=== PATIENT | male | born 1995 | race Caucasian/White ===

== ENCOUNTER 2021-11-24 23:39 | Emergency (ER) | payer SELFPAY ==
[2021-11-25 00:08] LABS: BASOPHIL 0.3 % (0-2); EOSINOPHIL 0.1 % (0-5); HCT 48.6 % (42.0-52.0); HGB 16.9 g/dl (13.2-18.0); LYMPHOCYTE 6.2 % (15-48); MCH 30.3 pg (25.0-31.0); MCHC 34.8 g/dL (32.0-36.0); MCV 87.1 fL (78.0-100.0); MONOCYTE 3.9 % (0-12); MPV 9.5 fL (6.0-9.5); NEUTROPHIL 89.1 % (41-80); NRBC 0; PLT 213 K/uL (150-400); RBC 5.58 M/uL (4.70-6.00); RDW 11.4 % (11.5-14.0); WBC 13.1 K/uL (4.0-10.5)
[2021-11-25 00:25] LABS: BILIRUBIN - TOTAL 1.2 mg/dL (0.2-1.0); GLOBULIN (CALCULATION) 3.4 g/dL; POTASSIUM 4.2 mmol/L (3.5-5.1); TOTAL PROTEIN 8.4 g/dL (6.4-8.2)
[2021-11-25 01:26] LABS: BILIRUBIN 1+ mg/dL (NEGATIVE); BLOOD 3+ Ery/uL (NEGATIVE); CLARITY CLEAR (CLEAR); COLOR YELLOW (YELLOW); GLUCOSE (U) NORMAL (NORMAL); LEUKOCYTES NEGATIVE Leu/uL (NEGATIVE); NITRITE NEGATIVE (NEGATIVE); PROTEIN NEGATIVE (NEGATIVE); SPECIFIC GRAVITY >=1.030 (1.001-1.030); UROBILINOGEN 0.2 mg/dL (0.2-1.0); pH 5.5 (5.0-9.0)
[2021-11-25 01:34] LABS: BACTERIA TRACE; MUCOUS MODERATE; TRANSITIONAL EPITHELIAL CELLS RARE; URINARY RBC 20-50
[2021-11-25 02:00] LABS: CORONAVIRUS 2019 SARS-COV-2 NEGATIVE (NEGATIVE); INFLUENZA A NAA NEGATIVE (NEGATIVE)
[2021-11-25] MEDS ORDERED: FLOMAX0.4 MG PO (02:18)
[2021-11-25] MEDS ORDERED: NAPROXEN500 MG PO (02:18)
[2021-11-25] MEDS ORDERED: PERCOCET 5-3251 EACH PO (02:18)
[2021-11-25] MEDS ORDERED: ONDANSETRON ODT4 MG PO (02:25)
== END 2021-11-25 02:45 | disposition home or self-care (01) ==
LOC: FER 23:39
PROVIDERS: Internal Medicine
DX: N13.2 Hydronephrosis with renal and ureteral calculous obstruction (principal); F17.290 Nicotine dependence, other tobacco product, uncomplicated; Z20.822 Contact with and (suspected) exposure to COVID-19
CPT/HCPCS: 36415; 80053; 81001; 83690; 84145; 85025; J1885; J2405; J7120; U0002